=== PATIENT | male | born 1965 | race Caucasian/White ===

== ENCOUNTER 2024-09-05 22:07 | Emergency (ER) | payer BC ==
[~2024-09-05] VITALS: Ht 170.2 cm; Wt 91.0 kg
[2024-09-05 22:11] VITALS: BP 129/82; PULSE 60; RESP 18; TEMP 36.5; O2SAT 100
== END 2024-09-06 05:30 | disposition left against medical advice (07) ==
LOC: ER 22:07
DX: S01.81XA Laceration without foreign body of other part of head, initial encounter (principal); X58.XXXA Exposure to other specified factors, initial encounter; Y93.9 Activity, unspecified; Y92.89 Other specified places as the place of occurrence of the external cause; Y99.8 Other external cause status